=== PATIENT | female | born 1990 | race Caucasian/White ===

== ENCOUNTER 2025-01-21 08:50 | Emergency (ER) | payer OTHER, MEDICAID ==
[~2025-01-21] VITALS: Ht 170.2 cm; Wt 144.5 kg
[2025-01-21] MEDS: ACETAMINOPHEN 325 MG TAB PO ONE (09:59)
[2025-01-21] MEDS ORDERED: LOSARTAN-HCTZ1 EAC2 (11:14)
[2025-01-21] MEDS ORDERED: MULTI-VITAMIN1 EACH PO (11:14)
[2025-01-21] MEDS ORDERED: BIOTIN5000 MCG (11:14)
[2025-01-21] MEDS ORDERED: LEVOTHYROXINE50 MCG PO (11:14)
[2025-01-21] MEDS ORDERED: VITAMIN D325 MCG (11:14)
[2025-01-21] MEDS ORDERED: HYDROXYZINE HCL25 MG PO (11:14)
[2025-01-21] MEDS ORDERED: BIOTIN5000 MC2 (11:14)
[2025-01-21] MEDS ORDERED: OYSTER SHELL 51 EACH PO (11:14)
[2025-01-21] MEDS ORDERED: [UNRECOGNIZED DRUG - OTHER] (11:14)
[2025-01-21] MEDS ORDERED: LEVETIRACETAM500 MG PO (11:14)
[2025-01-21] MEDS ORDERED: REXULTI4 MG (11:14)
[2025-01-21] MEDS ORDERED: VITAMIN B-121000 MCG PO (11:14)
[2025-01-21] MEDS ORDERED: DEPAKOTE ER500 MG PO (11:14)
[2025-01-21 11:25] VITALS: PULSE 61; RESP 18; TEMP 98.9; O2SAT 98
== END 2025-01-21 11:25 | disposition home or self-care (01) ==
LOC: FSED 09:14
DX: S02.2XXA Fracture of nasal bones, initial encounter for closed fracture (principal); S02.85XA Fracture of orbit, unspecified, initial encounter for closed fracture; S01.21XA Laceration without foreign body of nose, initial encounter; W01.198A Fall on same level from slipping, tripping and stumbling with subsequent striking against other object, initial encounter; Y92.89 Other specified places as the place of occurrence of the external cause; I10 Essential (primary) hypertension; E11.9 Type 2 diabetes mellitus without complications; F20.9 Schizophrenia, unspecified; H40.9 Unspecified glaucoma; E03.9 Hypothyroidism, unspecified
CPT/HCPCS: 70450; 70486; 99284